=== PATIENT | female | born 1960 | race Caucasian/White ===

== ENCOUNTER 2017-05-06 20:28 | Emergency (ER) | payer OTHER ==
[~2017-05-06] VITALS: Ht 157.5 cm; Wt 113.4 kg
--- NOTE | 2017-05-06 23:56 | CT SCAN REPORT ---
EXAMINATION: CT CERVICAL SPINE WITHOUT CONTRAST CLINICAL INFORMATION: Bilateral hand numbness. Neck pain. COMPARISON: None TECHNIQUE: Multidetector volumetric imaging of the cervical spine was performed without IV contrast. Coronal and sagittal reformatted images were obtained and reviewed. DLP: 399 mGy-cm FINDINGS: No acute fracture or subluxation. Vertebral body height and alignment is maintained. Posterior elements are appropriately aligned. The atlantoaxial and atlantooccipital articulations are intact. Multilevel disc space narrowing throughout the cervical spine with small endplate osteophytes. There is significant artifact/noise on the study likely secondary to soft tissue prominence/body habitus. This limits evaluation of the disc levels on the axial view. Disc bulges are not well evaluated. There is bilateral mild bony neuroforaminal narrowing noted. This is seen on the right at the C4-C5 level and bilaterally at the C5-C6 level and C6-C7 level. The prevertebral soft tissues are unremarkable. Surgical clips are seen in the region of the thyroid bed. The lung apices are clear. The visualized intracranial structures are grossly unremarkable. IMPRESSION: Mild multilevel degenerative changes throughout the cervical spine. Mild bony neuroforaminal narrowing at the lower cervical spine.
[2017-05-07 00:05] LABS: ABSOLUTE BASOPHIL COUNT 0 /CUMM (0.0-0.2); ABSOLUTE EOSINOPHIL COUNT 0 /CUMM (0.0-0.7); ABSOLUTE LYMPH COUNT 1.6 /CUMM (1.2-3.4); ABSOLUTE MONOCYTE COUNT 0.4 /CUMM (0.10-0.60); BASOPHIL % 0.4 % (0.0-2.0); EOSINOPHIL % 0.1 % (0-5); GRANULOCYTE % 74.9 % (42.2-75.2); HEMATOCRIT 46.2 % (37-47); MEAN CORPUSCULAR HGB 26.6 PG (27.0-31.0); MEAN CORPUSCULAR HGB CONC 32.2 G/DL (33.0-37.0); MEAN CORPUSCULAR VOLUME 82.9 FL (81.0-99.0); MEAN PLATELET VOLUME 8.4 FL (7.4-10.4); PLATELET COUNT 305 /CUMM (130-400); RBC DISTRIBUTION WIDTH 14.8 % (11.5-14.5); RED BLOOD CELL CT 5.57 /CUMM (4.20-5.40)
--- NOTE | 2017-05-07 00:30 | ED GENERAL ADULT ---
History of Present Illness General Chief Complaint: General Adult Stated Complaint: MULTIPLE COMPLAINTS Source: patient, old records Exam Limitations: no limitations Vital Signs & Intake/Output Vital Signs & Intake/Output Vital Signs Date Time Temp Pulse Resp B/P B/P Pulse O2 O2 Flow FiO2 Mean Ox Delivery Rate 05/07 0107 96.8 84 18 120/87 99 Room Air 05/06 2211 Room Air 05/06 2044 95.7 113 18 119/90 96 Room Air ED Intake and Output 05/07 0000 05/06 1200 Intake Total Output Total Balance Patient 250 lb Weight Weight Reported by Patient Measurement Method Allergies Coded Allergies: No Known Allergies (05/06/17) Reconcile Medications Gabapentin (Neurontin) 100 MG CAPSULE 1 CAP PO TID PRN neuropathy Ibuprofen 600 MG TABLET 1 TAB PO Q6PRN PRN pain with food Triage Note: PT FROM HOME C/O MUSCLES WEAKNESS/TINGLING SINCE THURSDAY. PT STATES THAT SHE SAW HER PCP, NEUROLOGIST WHO STATED ITS FROM STRESS. PT STATES THAT TODAY WHEN SHE WAS IN THE SHOWER AND THEN HAD TO LOWER HERSELF TO THE GROUND DUE TO MUSCLE WEAKNESS OF PTS LEG ALMOST GIVING OUT. PT STATES "MY ARMS AND BOTH LEGS HAVE BEEN NUMB AND TINGLY, I HAVENT SLEEP IN 5 DAYS, IM UNCOMFORTABLE FROM PAIN IN MY BACK, ARMS AND LEGS. PT DENIES SOB, CP, JAW PAIN. PT STATES CURRENTLY CAN FEEL BOTH ARMS AND LEGS, NO NUMBNESS. PT HAS +2 PULSES IN BILATERAL WRISTS. PT STATES MUSCLE STRAINGING AND VILLA FROM MUSCLE WEAKNESS. PT STATES LOSS OF APPETIE OVER THE PAST FEW DAYS. Triage Nurses Notes Reviewed? yes Onset: Last week Duration: day(s):, constant, continues in ED Timing: recent history Injury Environment: home Severity: moderate, severe Modifying Factors: Improves With: rest. Worsens With: movement. LMP (ages 10-50): post menopausal : No Patient currently breastfeeds: No HPI: 1 week prior to admission patient complains of anorexia and frequent loose watery stool right-sided neck pain with numbness to bilateral hands. She also complains of progressive weakness collapsing prior to admission with difficulty getting up. She denies fever chills nausea vomiting chest pain cough shortness of breath headache dysuria rash bleeding. Past History Travel History Traveled to [place] past 21 day No Medical History Any Pertinent Medical History? see below for history Cardiovascular: hypertension, hyperlipidemia Surgical History Surgical History: non-contributory Psychosocial History What is your primary language Macedonian Tobacco Use: Never used Family History Hx Contributory? No Review of Systems Review of Systems Constitutional: Reports: see HPI, weakness. EENTM: Reports: no symptoms. Respiratory: Reports: no symptoms. Cardiovascular: Reports: no symptoms. GI: Reports: see HPI, diarrhea. Genitourinary: Reports: no symptoms. Musculoskeletal: Reports: no symptoms. Skin: Reports: no symptoms. Neurological/Psychological: Reports: see HPI, numbness. Hematologic/Endocrine: Reports: no symptoms. Immunologic/Allergic: Reports: no symptoms. All Other Systems: Reviewed and Negative Physical Exam Physical Exam General Appearance: well developed/nourished, alert, awake, anxious, obese Head: atraumatic, normal appearance Eyes: Bilateral: normal appearance, PERRL, EOMI. Ears, Nose, Throat: normal pharynx, normal ENT inspection, hearing grossly normal, moist mucus membranes Neck: normal inspection, supple, full range of motion, no midline tenderness Respiratory: normal breath sounds, chest non-tender, no respiratory distress, quiet respiration, lungs clear Cardiovascular: regular rate/rhythm, normal peripheral pulses, norml femoral pulses equa Peripheral Pulses: 4+ carotid (R), 4+ carotid (L) Gastrointestinal: normal bowel sounds, soft, non-tender, no organomegaly Back: normal inspection, normal range of motion, no vertebral tenderness Extremities: normal inspection, normal capillary refill, normal range of motion, no edema Neurologic/Psych: no motor/sensory deficits, awake, alert, oriented x 3, normal mood/affect, 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 Skin: intact, normal color, warm/dry Lymphatic: no anterior cervical presley Core Measures ACS in differential dx? No CVA/TIA Diagnosis: No Sepsis Present: No Sepsis Focused Exam Completed? No Progress Differential Diagnoses I considered the following diagnoses in my evaluation of the patient: Cervical stenosis neuropathy electrolyte abnormality Plan of Care: Orders Procedure Date/time Status MAGNESIUM 05/06 232 Complete LIPASE 05/06 2319 Complete COMPREHENSIVE METABOLIC PANEL 05/06 2319 Complete CBC WITHOUT DIFFERENTIAL 05/06 2319 Complete Laboratory Tests 05/06/17 2353: Anion Gap 18 H, Estimated GFR > 60, BUN/Creatinine Ratio 30.0 H, Glucose 114 H, Calcium 11.2 H, Magnesium 2.1, Total Bilirubin 1.1, AST 34, ALT 22, Alkaline Phosphatase 105, Total Protein 8.2, Albumin 4.7, Globulin 3.5, Albumin/Globulin Ratio 1.3, Lipase 95, CBC w Diff NO MAN DIFF REQ, RBC 5.57 H, MCV 82.9, MCH 26.6 L, MCHC 32.2 L, RDW 14.8 H, MPV 8.4, Gran % 74.9, Lymphocytes % 20.1 L, Monocytes % 4.5, Eosinophils % 0.1, Basophils % 0.4, Absolute Granulocytes 6.0, Absolute Lymphocytes 1.6, Absolute Monocytes 0.4, Absolute Eosinophils 0, Absolute Basophils 0 Diagnostic Imaging: Viewed by Me: CT Scan. Discussed w/RAD: CT Scan. Radiology Impression: Mild multilevel degenerative changes throughout the cervical spine. Mild bony neuroforaminal narrowing at the lower cervical spine. Initial ED EKG: none Departure Departure Time of Disposition: 57 Disposition: HOME OR SELF CARE Condition: Stable Clinical Impression Primary Impression: Arthritis of neck Secondary Impressions: Neuropathy Referrals: Unknown (PCP/Family) Departure Forms: Customer Survey General Discharge Information Prescriptions: Current Visit Scripts Gabapentin (Neurontin) 1 CAP PO TID PRN neuropathy #50 CAP Ibuprofen 1 TAB PO Q6PRN PRN pain #50 TAB with food Critical Care Note Critical Care Note Critical Care Time: non-applicable
[2017-05-07] MEDS ORDERED: NEURONTIN100 M1 PO (01:01)
[2017-05-07] MEDS ORDERED: IBUPROFEN600 M1 PO (01:01)
[2017-05-07 01:07] VITALS: BP 120/87
[2017-05-07] MEDS ORDERED: SYNTHROID112 MCG PO (23:48)
[2017-05-07] MEDS ORDERED: VITAMIN D250000 UNIT PO (23:48)
[2017-05-07] MEDS ORDERED: DIAZEPAM5 M1 PO (23:48)
[2017-05-07] MEDS ORDERED: PAROXETINE HCL20 M1 PO (23:48)
== END 2017-05-07 01:08 ==
LOC: ERH 20:28
PROVIDERS: Emergency Medicine
DX: M47.812 Spondylosis without myelopathy or radiculopathy, cervical region (principal); G62.9 Polyneuropathy, unspecified